=== PATIENT | male | born 1970 | race African-American/Black ===

== ENCOUNTER 2018-04-11 15:19 | Emergency (ER) | payer BC, OTHER ==
--- NOTE | 2018-04-11 15:57 | Emergency Department Record ---
History of Present Illness - General Chief Complaint: Hypertension Stated Complaint: HYPERTENSION, SOB Time Seen by Provider: 04/11/18 15:56 Source: Patient Mode of Arrival: Ambulatory Limitations: No limitations - History of Present Illness Initial Comments: The patient is here due to having SOB and MARIA LUZ for 10 days. He has had orthopnea also but denies any Cp or back pain. He does feel like his abdomen is full. The patient has a long hx of severe HTN and has been out of his medicines for a year. Recently he has taken his BP and it is very high. MD Complaint: Other Onset/Timin -: Days(s) Timing: Gradual onset Description: Lightheadedness History of Same: Yes Severity: Mild - Omar Coma Scale Eye Response: (4) Open spontaneously Motor Response: (6) Obeys commands Verbal Response: (5) Oriented Omar Total: 15 - Related Data Home Medications Medication Instructions Recorded Confirmed Last Taken Amlodipine Besylate [Norvasc] 10 mg PO DAILY 04/11/18 04/11/18 1 Year Ago ~04/11/17 Atorvastatin Calcium 20 mg PO DAILY 04/11/18 04/11/18 1 Year Ago ~04/11/17 Hydrochlorothiazide [Hctz] 25 mg PO DAILY 04/11/18 04/11/18 1 Year Ago ~04/11/17 Metoprolol Succinate 100 mg PO BID 04/11/18 04/11/18 1 Year Ago ~04/11/17 Allergies Allergy/AdvReac Type Severity Reaction Status Date / Time No Known Drug Allergies Allergy Verified 04/11/18 15:56 Travel Screening - Travel/Exposure Within Last 30 Days Have you traveled within the last 30 days?: No - Travel/Exposure Within Last Year Have you traveled outside the [place] in the last year?: No - Additonal Travel Details Have you been exposed to anyone with a communicable illness?: No - Travel Symptoms Symptom Screening: None Review of Systems Constitutional: Denies: Chills, Fever Eyes: Denies: Eye discharge ENT: Denies: Congestion Respiratory: Reports: Dyspnea. Denies: Cough, Hemoptysis Cardiovascular: Denies: Chest pain Endocrine: Reports: Fatigue Gastrointestinal: Denies: Nausea Genitourinary: Denies: Dysuria Musculoskeletal: Denies: Arthralgia Past Medical History - SOCIAL HISTORY Smoking Status: Former smoker Alcohol Use: Occasional Drug Use: None - RESPIRATORY Hx Respiratory Disorders: Yes Hx Pneumonia: Yes (1-2 years ago) Hx Sleep Apnea: Yes - CARDIOVASCULAR Hx Hypertension: Yes - NEURO Hx Neuro Disorders: No - GI Hx GI Disorders: No - Hx Genitourinary Disorders: No - ENDOCRINE Hx Endocrine Disorders: No - MUSCULOSKELETAL Hx Musculoskeletal Disorders: No - PSYCH Hx Psych Problems: No - HEMATOLOGY/ONCOLOGY Hx Hematology/Oncology Disorders: No Family Medical History Any Significant Family History?: Yes Hx Cancer: Grandparents Physical Exam - General General Appearance: Alert, Oriented x3, Cooperative, No acute distress - Head Head exam: Atraumatic, Normocephalic, Normal inspection - Eye Eye exam: Normal appearance, PERRL, EOMI - ENT Throat exam: Normal inspection. negative: Tonsillar erythema, Tonsillar exudate - Neck Neck exam: Normal inspection, Full ROM. negative: Tenderness - Respiratory Respiratory exam: Rales (at the bases.). negative: Normal lung sounds bilaterally - Cardiovascular Cardiovascular Exam: Regular rate, Normal rhythm, S3. negative: Normal heart sounds - GI/Abdominal GI/Abdominal exam: Soft, Normal bowel sounds. negative: Tenderness - Extremities Extremities exam: Normal inspection, Full ROM, Normal capillary refill. negative: Tenderness - Neurological Neurological exam: Alert. negative: Motor sensory deficit Course Vital Signs 04/11/18 15:46 Temperature 99.1 F Pulse Rate 108 H Respiratory 18 Rate Blood Pressure 239/152 Pulse Ox 99 - Reevaluation(s) Reevaluation #1: The patient is doing a little better at this time. His BP is clearly quite high and he appears to have the diagnosis of Malignant HTN. We will increase his BP meds slowly and will order Lasix IV. I did ask the patient which hospital he would like to be transferred to and he chose [facility]. 04/11/18 16:53 Reevaluation #2: The patient is resting comfortably and denies any CP or SOB. His BP is slowly improving and I feel we should not be overly aggressive with it due to the risk of CVA with lowering it to fast. I did discuss the case with Dr. Osorio at [facility] and he does accept the patient in transfer. 04/11/18 17:16 Medical Decision Making - Data Complexity MDM Data: Labs Ordered and/or Reviewed, X-Ray Ordered and/or Reviewed (CX), EKG Ordered and/or Reviewed - Lab Data Result diagrams: 04/11/18 16:05 04/11/18 16:05 - EKG Data -: EKG Interpreted by Me EKG: Abnormal EKG (NSR with severe LVH with repolarization abnormalities.) - Radiology Data Radiology results: Report reviewed (CXR: Mild CMG) Disposition Disposition: Transfer Clinical Impression: Malignant hypertension Disposition: Acute Care Hospital Transfer Transfer To: [facility] Reason For Transfer: Malignant HTN Accepting Physician: Devon Time Discussed w/Accepting Physician: 17:17 Condition: (2) Stable Forms: Patient Portal Access Time of Disposition: 17:17 Quality - Quality Measures Quality Measures: N/A - Blood Pressure Screening View Details: Yes Does Patient Have Any of the Following: Active Dx of HTN Blood Pressure Classification: Hypertensive Reading Systolic Measurement: 239 Diastolic Measurement: 152 Screening for High Blood Pressure: Patient Exclusion, Hx of HTN [[id number]]
[2018-04-11] MEDS ORDERED: METOPROLOL TART 50 MG TABLET PO ONE ×2 (16:01→16:37)
[2018-04-11] MEDS ORDERED: AMLODIPINE BESYLATE 5MG TAB PO SCH (16:15)
[2018-04-11 16:16] LABS: BASO % 0.3 % (0-6); EOS % 1.8 % (0-6); GRAN % 68.5 % (47-80); HEMATOCRIT 43.5 % (42.0-52.0); LYMPH % 23.2 % (16-45); MEAN CELL VOLUME 82.7 fl (81-97); MEAN CORPUSCULAR HEMOGLOBIN 26.6 pg (27-33); MEAN CORPUSCULAR HGB CONC 32.2 g/dl (32-36); MEAN PLATELET VOLUME 10.6 fl (7.4-10.4); MONO % 6.2 % (0-9); PLATELET COUNT 182 K/uL (130-400); RED BLOOD COUNT 5.26 M/uL (4.40-5.70); RED CELL DISTRIBUTION WIDTH 15.2 % (11.5-14.5); WHITE BLOOD COUNT W/O DIFF 6.8 K/uL (4.2-12.2)
[2018-04-11 16:25] LABS: INR 1.1; PARTIAL THROMBOPLASTIN TIME 27.8 SECONDS (24.5-39.1); PROTHROMBIN TIME (PATIENT) 11.4 SECONDS (9.5-12.1)
[2018-04-11 16:28] LABS: BILIRUBIN,TOTAL 1.2 mg/dL (0.2-1.0); CREATININE 2.8 mg/dL (0.7-1.2); TOTAL PROTEIN 6.6 g/dL (6.6-8.7)
[2018-04-11 16:33] LABS: ALB/GLOB RATIO 1.4 (1.1-1.8); ALBUMIN 3.8 g/dL (4.0-5.0)
[2018-04-11 16:35] LABS: CKMB 4.7 ng/mL (<6.73)
[2018-04-11] MEDS ORDERED: FUROSEMIDE IV 20MG/2ML VIAL IVP ONE ×2 (16:38→16:46)
[2018-04-11 19:10] LABS: URINE APPEARANCE CLEAR; URINE BILIRUBIN NEGATIVE (NEGATIVE); URINE BLOOD SMALL (NEGATIVE); URINE COLOR YELLOW; URINE GLUCOSE (UA) NEGATIVE (NEGATIVE); URINE KETONE NEGATIVE (NEGATIVE); URINE LEUKOCYTE ESTERASE NEGATIVE (NEGATIVE); URINE NITRITE NEGATIVE (NEGATIVE); URINE UROBILINOGEN 0.2 E.U./dL (0.20 - 1.00)
[2018-04-11 19:15] LABS: URINE EPITHELIAL CELLS 0 - 2 (FEW); URINE RBC 0 - 2 (NONE SEEN); URINE WBC 0 - 2 (0-2/hpf)
[2018-04-11 19:16] LABS: URINE BACTERIA NONE SEEN
--- NOTE | 2018-04-14 11:21 | RADIOLOGY REPORT ---
EXAM: PORTABLE CHEST HISTORY: DIFFICULTY IN BREATHING. SHORTNESS OF BREATH FOR 1.5 WEEKS. TECHNIQUE: A single mobile upright view of the chest was obtained. Comparison: Two view chest radiographic examination dated 12/18/14. FINDINGS: The heart projects borderline enlarged. No gross pulmonary venous hypertension is seen. The central vasculature appears somewhat ill defined bilaterally. No lung consolidation, costophrenic angle blunting, or pneumothorax. IMPRESSION: 1. THERE IS QUESTIONABLE MILD HAZINESS OF THE CENTRAL PULMONARY VASCULATURE BILATERALLY. THIS CAN BE SEEN WITH INFLAMMATORY CHANGE OR LESS LIKELY EDEMA. NO LUNG CONSOLIDATION. 2. BORDERLINE CARDIOMEGALY. JOB NUMBER: [id number] [facility]
== END 2018-04-11 18:26 | disposition short-term general hospital (02) ==
LOC: ER 15:19
DX: I10 Essential (primary) hypertension (principal); R06.02 Shortness of breath; R42 Dizziness and giddiness; Z87.891 Personal history of nicotine dependence
CPT/HCPCS: 71045; 80053; 81001; 82550; 82553; 83880; 84484; 85025; 85610; 85730; 93005; 93010; 96374; 99285; J1940